=== PATIENT | female | born 1960 | race Caucasian/White ===

== ENCOUNTER 2022-09-01 10:33 | Outpatient (CLI) | payer BC | END 2022-09-01 23:59 | disposition critical access hospital (66) | LOC: EMS 10:33 | DX: S49.91XA Unspecified injury of right shoulder and upper arm, initial encounter (principal); W01.0XXA Fall on same level from slipping, tripping and stumbling without subsequent striking against object, initial encounter; Y93.89 Activity, other specified; Y92.414 Local residential or business street as the place of occurrence of the external cause | CPT/HCPCS: A0425; A0427 ==

== ENCOUNTER 2023-05-02 14:49 | Outpatient (CLI) | payer BC ==
--- NOTE | 2023-05-02 16:00 | DEXA Report ---
PROCEDURE: Dexa Spine and/or Hip INDICATIONS: OSTEOPENIA TECHNIQUE: Dual energy x-ray absorptiometry (DXA) was performed on a [employer] System. Regions measur ed are the AP Spine, femoral neck, and if needed forearm. COMPARISON: None FINDINGS: Lumbar Spine: Bone Mineral Density 1.086 g/cm/cm,T score -0.8. Left Femoral Neck: Bone Mineral Density 0.945 g/cm/cm, T score -0.7. Left Hip: Bone Mineral Density 1.086 g/cm/cm,T score 0.6. (T score greater or equal to -1.0: NORMAL) (T score from -1.1 to -2.4: OSTEOPENIA) (T score less than or equal to -2.5 to: OSTEOPOROSIS) Impression: By WHO criteria, this patient has normal bone mineral density. Patients with diagnosis of osteoporosis or osteopenia should have regular bone mineral density assess ment. For those eligible for Medicare, routine testing is allowed once every 2 years. Testing frequ ency can be increased for patients who have rapidly progressing disease or for those who are receivin g medical therapy to restore bone mass. Reviewed by: Ad Bray on 05/02/2023 3:59 PM PDT Approved by: Ad Bray on 05/02/2023 3:59 PM PDT Station ID: [id number]
== END 2023-05-02 14:50 | disposition home or self-care (01) ==
LOC: DI 14:49
PROVIDERS: ATTEND Physician Assistant Medical
DX: Z87.39 Personal history of other diseases of the musculoskeletal system and connective tissue (principal)

== ENCOUNTER 2023-06-20 09:04 | Outpatient (CLI) | payer BC | END 2023-06-20 09:05 | disposition home or self-care (01) | LOC: DI 09:04 | PROVIDERS: ATTEND Physician Assistant Medical | DX: R01.1 Cardiac murmur, unspecified (principal); I51.7 Cardiomegaly | CPT/HCPCS: 93306 ==

== ENCOUNTER 2023-12-10 14:50 | Outpatient (CLI) | payer BC ==
--- NOTE | 2023-12-11 09:24 | Mammography Report ---
BILATERAL DIGITAL SCREENING MAMMOGRAM 3D/2D: 12/10/2023 CLINICAL: Routine screening. Family history of breast cancer. Comparison is made to exams dated: 03/03/2021 mammogram, 05/27/2019 mammogram, and 01/12/2016 mammogram - [facility]. Both breasts are heterogeneously dense, which may obscure small masses (category c / 51-75% glandular tissue). No significant masses, calcifications, or other findings are seen in either breast. There has been no significant interval change. IMPRESSION: NEGATIVE There is no mammographic evidence of malignancy. A 1 year screening mammogram is recommended. Based on the Tyrer Cuzick model (a risk assessment model) the patient's lifetime risk is 18.0% and he r 10 year risk is 8.7%. According to the ACR, ACS, and NCCN guidelines, an annual breast MRI exam laisha ng with mammogram is recommended if the patient's lifetime risk is 20% or greater. This exam was interpreted at Station ID: [id number]. NOTE: For mammograms, a report in lay terms will be sent to the patient. Approximately 15% of breast malignancies will not be visualized mammographically. In the management of a palpable breast mass, a negative mammogram must not discourage biopsy of a clinically suspicious lesion. Electronically Signed By: Valentin padilla/lily:12/11/2023 08:04:20 letter sent: No_Letter ACR BI-RADS Category 1: Negative 3341F PARENCHYMAL PATTERN: (D) - The breast(s) demonstrate(s) heterogeneously dense fibroglandular asia watson. BI-RADS CATEGORY: (1) - 1 RECOMMENDATION: (ANNUAL) - Recommend routine annual screening mammography. [id number] 1 year screening LATERALITY: (B)
== END 2023-12-10 14:51 | disposition home or self-care (01) ==
LOC: DI.S 14:50
PROVIDERS: ATTEND Physician Assistant Medical
DX: Z12.31 Encounter for screening mammogram for malignant neoplasm of breast (principal); R92.333 Mammographic heterogeneous density, bilateral breasts; Z80.3 Family history of malignant neoplasm of breast

== ENCOUNTER 2024-03-13 06:24 | Day surgery (SDC) | payer OTHER ==
[2024-03-13] MEDS: LACTATED RINGERS 1,000 ML IV ONE (06:55)
[2024-03-13] MEDS ORDERED: PROPOFOL 200 MG/20 ML VIAL IVP ONE (07:54)
[2024-03-13] MEDS ORDERED: PROPOFOL 500 MG/50 ML 500 MG/50 ML VIAL ONE (07:54)
[2024-03-13] MEDS: LACTATED RINGERS 200 ML IV ONE (08:31)
[2024-03-13 08:50] VITALS: BP 132/71; O2SAT 97
--- NOTE | 2024-03-13 11:02 | ANESTHESIA POST OP EVALUATION ---
Anesthesia Post Eval - Post Anesthesia Eval Vitals: Last Vital Signs Temp 36.2 C L 03/13/24 08:31 Pulse 59 L 03/13/24 08:48 Resp 18 03/13/24 08:48 BP 132/71 H 03/13/24 08:48 Pulse Ox 97 03/13/24 08:48 O2 Flow Rate CV Function Including HR & BP: Stable Pain Control: Satisfactory Nausea & Vomiting: Negative Mental Status: Baseline Respiratory Status: Airway Patent Hydration Status: Satisfactory Anesthesia Complications: None
== END 2024-03-13 06:25 | disposition home or self-care (01) ==
LOC: SDS 06:24
PROVIDERS: ATTEND Surgery
PROC: 0DBP8ZZ Excision of Rectum, Via Natural or Artificial Opening Endoscopic (ICD-10-PCS; 2024-03-13)
PROC: 0DBM8ZZ Excision of Descending Colon, Via Natural or Artificial Opening Endoscopic (ICD-10-PCS; principal; 2024-03-13 07:30)
DX: Z12.11 Encounter for screening for malignant neoplasm of colon (principal); K63.5 Polyp of colon; K62.1 Rectal polyp; K57.30 Diverticulosis of large intestine without perforation or abscess without bleeding; Z80.0 Family history of malignant neoplasm of digestive organs; G47.30 Sleep apnea, unspecified; E66.9 Obesity, unspecified; Z68.37 Body mass index [BMI] 37.0-37.9, adult
CPT/HCPCS: 45380; J7120